=== PATIENT | male | born 1965 | race Two or more races ===

== ENCOUNTER 2018-04-12 23:14 | Emergency (ER) | payer BC ==
[~2018-04-12] VITALS: Ht 170.2 cm; Wt 79.4 kg
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
--- NOTE | 2018-04-13 00:16 | NUR ---
Dr. Otero at bedside for update
[2018-04-13 00:22] VITALS: BP 148/88
--- NOTE | 2018-04-13 00:22 | NUR ---
Patient discharged to home in stable conditon. Written and verbal after care instructions given. Patient verbalizes understanding of instructions.
== END 2018-04-13 00:22 | disposition home or self-care (01) ==
LOC: ER 23:15
DX: F07.81 Postconcussional syndrome (principal); F17.200 Nicotine dependence, unspecified, uncomplicated
CPT/HCPCS: 70450; A4663

== ENCOUNTER 2020-03-22 19:57 | Emergency (ER) | payer BC ==
[~2020-03-22] VITALS: Ht 170.2 cm; Wt 83.9 kg
--- NOTE | 2020-03-22 20:37 | NUR ---
RAPID COVID SPECIMEN TO LAB, PT WENT TO CAR TO AWAIT RESULTS. WE WILL CALL PT AFTER RESULTS AT [phone]
--- NOTE | 2020-03-22 21:34 | NUR ---
Patient discharged to home in stable condition. Written and verbal after care instructions given. Patient verbalizes understanding of instructions. Stressed follow up or return to ER for worsening s/s. Patient ambulated with stable gait.
[2020-03-22 21:36] VITALS: BP 145/97
== END 2020-03-22 21:37 | disposition home or self-care (01) ==
LOC: ER 19:57
DX: U07.1 COVID-19 (principal); R50.9 Fever, unspecified; M79.10 Myalgia, unspecified site; F17.210 Nicotine dependence, cigarettes, uncomplicated; R03.0 Elevated blood-pressure reading, without diagnosis of hypertension; Z83.3 Family history of diabetes mellitus; Z82.49 Family history of ischemic heart disease and other diseases of the circulatory system
CPT/HCPCS: A4663

== ENCOUNTER 2020-04-11 22:06 | Inpatient (IN) | payer BC ==
[~2020-04-11] VITALS: Ht 170.2 cm; Wt 83.9 kg
[2020-04-11] MEDS ORDERED: AZIT250T13 PO (22:41)
[2020-04-11] MEDS ORDERED: DEXA6TAB6 PO (22:41)
--- NOTE | 2020-04-12 | NUR ---
Patient resting with no acute distress sating at 96% on O2 2L via NC.
--- NOTE | 2020-04-12 04:00 | NUR ---
Patient asleep at this time, O2 sat 97% on O2 2L via NC.
--- NOTE | 2020-04-12 07:15 | NUR ---
Handoff to oncoming nurse.
--- NOTE | 2020-04-12 07:16 | NUR ---
Report to BRYSON Sabillon
--- NOTE | 2020-04-12 07:20 | NUR ---
1st contact with patient-AOx4 with shortness of breath with exertion, +decreasing sPo2 levels@room air. Per form raiser BRYSON Valdes, this patient is waiting for rn social services to provide home medical services re: oxygen tank/ supplement while@home. lime kiln worker Santi was notified, pending callback@this time. shipping manager will be notified as well.
--- NOTE | 2020-04-12 12:44 | NUR ---
Hayes marmolejo in [facility] - 04/12/[address] Griffiths accepted patient, pending bed & available nurse@this time.
--- NOTE | 2020-04-12 12:53 | NUR ---
Patient ate lunch tray with good appetite, pending results & disposition.
--- NOTE | 2020-04-12 12:54 | NUR ---
Dr Griffiths called back & talked to our ER doctor (Marco). This patient is now waiting for an inpatient bed & nurse@this time.
--- NOTE | 2020-04-12 14:08 | NUR ---
11:45am: PETER contacted Radha at [facility] [place] [phone] to assist with obtaining home oxygen for the patient. Radha stated that due to current oxygen shortage, she is trying to work on her orders at this time and will call this SW back with an update on availability. PETER provided this SW's contact information to Radha, and PETER will wait for a call back from Radha. PETER will follow-up, as needed. PETER informed ED BRYSON Sabillon about above.
--- NOTE | 2020-04-12 15:13 | NUR ---
Patient is now waiting for an inpatient bed & an available nurse. Patient is resting on gurney with nasal cannula@3liters/min with SPo2=95%-97%. Monitored closely.
--- NOTE | 2020-04-12 15:46 | NUR ---
SW spoke with ED RN Ramandeep, who stated that patient will be getting admitted to the hospital, as inpatient. At this time, no follow-up needed for ordering at-home oxygen for the patient (see previous SS note).
--- NOTE | 2020-04-12 17:27 | NUR ---
Patient is resting comfortably on gurney with eyes closed, nasal cannula@3liters/min with sPo2 levels=95%-97%. Head of gurney elevated@greater than 30 degrees. Comfort and safety measures maintained.
--- NOTE | 2020-04-12 18:04 | NUR ---
Patient is eating dinner with good appetite, monitored closely.
[2020-04-12] MEDS ORDERED: ONDANSETRON 4 MG/2 ML VIAL IV PRN (18:30)
[2020-04-12] MEDS ORDERED: HYDROCODONE/APAP 5-325MG TABLET PO PRN (18:30)
[2020-04-12] MEDS ORDERED: ACETAMINOPHEN 325 MG TABLET PO PRN (18:30)
[2020-04-12] MEDS ORDERED: ENOXAPARIN SODIUM 40 MG/0.4 ML DISP.SYRIN SQ SCH (18:30)
[2020-04-12] MEDS ORDERED: ALBUTEROL SULFATE 8 GM HFA.AER.AD IH PRN (18:30)
--- NOTE | 2020-04-12 19:11 | NUR ---
Patient is still for transfer to inpatient floor, pending available nurse. Hands off report given to RN Jhon accordingly
--- NOTE | 2020-04-12 19:41 | NUR ---
Dr [email or web address]@bedside.
[2020-04-12] MEDS ORDERED: ENOXAPARIN SODIUM 40 MG/0.4 ML DISP.SYRIN SQ ONE (20:37)
[2020-04-12] MEDS ORDERED: AZITHROMYCIN 500MG/ D5W 250ML IVPB **ER PYXIS ONLY IV ONE (20:38)
[2020-04-12] MEDS: AZITHROMYCIN IV 250 MG in IV DEXTROSE 5% 250 ML IV SCH (21:00)
[2020-04-12] MEDS: ASCORBIC ACID 500 MG TABLET PO SCH (21:11)
[2020-04-12] MEDS ORDERED: ASCORBIC ACID 500 MG TABLET ONE (21:13)
--- NOTE | 2020-04-12 21:50 | NUR ---
Pt. admitted to TELE , under care of Dr. WELSH Belongs List completed
--- NOTE | 2020-04-12 22:02 | NUR ---
PATIENT TAKEN BY DE DE LA CRUZ IN A GURNEY TO ROOM 314. PATIENT ON CONTINOUS O2 AT 4L VIA NC.
--- NOTE | 2020-04-12 22:05 | NUR ---
Received patient from ER. Stable condition. On 4L via NC. No pain. No distress. Safety measures in place. Care plan initiated. Will monitor and assess.
[2020-04-13 02:03] VITALS: BP 132/92
[2020-04-13] MEDS: PANTOPRAZOLE SODIUM 40 MG TABLET.DR PO SCH (06:14)
[2020-04-13 06:20] LABS: BASOPHILS % (AUTO) 0.2 % (0.0-2.0); HEMATOCRIT 46.9 % (36.7-47.1); LYMPHOCYTES # (AUTO) 0.9 K/uL (20.0-40.0); LYMPHOCYTES % (AUTO) 6.6 % (20.5-51.5); MEAN CORPUSCULAR HEMOGLOBIN 33.3 uug (23.8-33.4); MEAN CORPUSCULAR HGB CONC 34 g/dL (32.5-36.3); MEAN CORPUSCULAR VOLUME 97.5 fL (73.0-96.2); MONOCYTES # (AUTO) 0.6 K/uL (2.0-10.0); MONOCYTES % (AUTO) 4.6 % (0.0-11.0); NEUTROPHILS # (AUTO) 12.6 K/uL (1.8-8.9); NEUTROPHILS % (AUTO) 88.6 % (38.5-71.5); PLATELET COUNT (AUTO) 202 K/uL (152-348); RED BLOOD CELL COUNT(AUTO) 4.81 MIL/uL (4.06-5.63); WHITE BLOOD COUNT (AUTO) 14.2 K/uL (3.6-10.2)
[2020-04-13 06:47] VITALS: BP 129/87
[2020-04-13 07:59] LABS: BILIRUBIN,TOTAL 0.4 mg/dL (0.2-1.0); MAGNESIUM 2.3 mg/dL (1.8-2.4); PHOSPHOROUS 3.2 mg/dL (2.5-4.9); TOTAL PROTEIN, SERUM 6.9 g/dL (6.4-8.2)
[2020-04-13] MEDS: DEXAMETHASONE SOD PHOSPHATE 4 MG INJ IV SCH (10:03)
[2020-04-13] MEDS: ASCORBIC ACID 500 MG TABLET PO SCH ×2 (10:03→21:23)
[2020-04-13] MEDS: CHOLECALCIFEROL 1,000 UNIT TABLET PO SCH (10:03)
[2020-04-13] MEDS: ZINC SULFATE 220 MG CAPSULE PO SCH (10:03)
[2020-04-13 12:00] VITALS: BP 129/84
--- NOTE | 2020-04-13 14:50 | NUR ---
Covid PCR test ordered and submitted to Lab. Received results of Positive Antigen. PT is aware.
[2020-04-13 16:00] VITALS: BP 109/68
[2020-04-13] MEDS: AZITHROMYCIN IV 250 MG in IV DEXTROSE 5% 250 ML IV SCH (17:41)
[2020-04-13] MEDS ORDERED: DEXTROSE 50% 50 ML DISP.SYRIN IV PRN (18:45)
--- NOTE | 2020-04-13 19:00 | NUR ---
PT seen by Dr. Nick Castaneda with new orders. Carried out medication and orders.
[2020-04-13] MEDS: METFORMIN HCL 500 MG TABLET PO SCH (19:19)
[2020-04-13 21:18] VITALS: BP 108/69
[2020-04-13] MEDS: EZETIMIBE 10 MG TABLET PO SCH (21:23)
[2020-04-13] MEDS: ENOXAPARIN SODIUM 40 MG/0.4 ML DISP.SYRIN SQ SCH (21:24)
[2020-04-13] MEDS: ATORVASTATIN 20 MG TABLET PO SCH (21:24)
[2020-04-13] MEDS: BLOOD SUGAR DIAGNOSTIC 1 EACH STRIP VI SCH (21:52)
[2020-04-13] MEDS: INSULIN REGULAR, HUMAN 300 UNIT/3 ML VIAL SQ PRN ×2 (21:54→21:59)
[2020-04-13] MEDS ORDERED: CEFTRIAXONE 1 G VIAL ONE (22:13)
[2020-04-13] MEDS: CEFTRIAXONE 1 G in IV DEXTROSE 5% 50 ML IV SCH (22:24)
[2020-04-14 01:05] VITALS: BP 105/74
[2020-04-14 05:40] VITALS: BP 106/71
[2020-04-14] MEDS: PANTOPRAZOLE SODIUM 40 MG TABLET.DR PO SCH (06:08)
--- NOTE | 2020-04-14 06:47 | NUR ---
Patient going to be handed off to AM nurse. VSS. Stable condition. Continued plan of care. Safety measures in place. Will endorse to AM nurse.
[2020-04-14] MEDS: BLOOD SUGAR DIAGNOSTIC 1 EACH STRIP VI SCH ×4 (07:35→20:27)
[2020-04-14] MEDS: INSULIN REGULAR, HUMAN 300 UNIT/3 ML VIAL SQ PRN ×4 (07:36→21:07)
[2020-04-14] MEDS: DEXAMETHASONE SOD PHOSPHATE 4 MG INJ IV SCH ×2 (09:00→10:46)
[2020-04-14] MEDS: ASCORBIC ACID 500 MG TABLET PO SCH ×2 (09:37→20:14)
[2020-04-14] MEDS: ZINC SULFATE 220 MG CAPSULE PO SCH (09:37)
[2020-04-14] MEDS: CHOLECALCIFEROL 1,000 UNIT TABLET PO SCH (09:37)
[2020-04-14] MEDS: METFORMIN HCL 500 MG TABLET PO SCH ×2 (09:39→19:01)
--- NOTE | 2020-04-14 10:37 | NUR ---
INFORMATION SENT:FACE SHEET,24HRS,PROGRESS NOTES04/13,PSF,IMAGING,UR04/13 FAX TO:PETRONA SMITH O [phone] FAX SENT BY DAMION
[2020-04-14 11:37] VITALS: BP 112/76
--- NOTE | 2020-04-14 13:36 | NUR ---
Patient is resting in bed. no acute changes noted. morning dose of Decadron was given late as it was not available. BS was 217, 4 units of insulin given. all the needs are met, no s/s of SOB or distress. will cont to monitor .
[2020-04-14 15:07] LABS: HEMATOCRIT 46.7 % (36.7-47.1); HEMOGLOBIN 15.2 g/dL (12.5-16.3); LYMPHOCYTES # (AUTO) 0.6 K/uL (20.0-40.0); LYMPHOCYTES % (AUTO) 4.2 % (20.5-51.5); MEAN CORPUSCULAR HEMOGLOBIN 32.2 uug (23.8-33.4); MEAN CORPUSCULAR HGB CONC 33 g/dL (32.5-36.3); MEAN CORPUSCULAR VOLUME 98.6 fL (73.0-96.2); MONOCYTES # (AUTO) 0.5 K/uL (2.0-10.0); MONOCYTES % (AUTO) 3.4 % (0.0-11.0); NEUTROPHILS # (AUTO) 14.1 K/uL (1.8-8.9); NEUTROPHILS % (AUTO) 92.4 % (38.5-71.5); PLATELET COUNT (AUTO) 188 K/uL (152-348); RED BLOOD CELL COUNT(AUTO) 4.73 MIL/uL (4.06-5.63); WHITE BLOOD COUNT (AUTO) 15.3 K/uL (3.6-10.2)
[2020-04-14 16:00] VITALS: BP 118/73
[2020-04-14 16:15] LABS: CREATININE 1.1 mg/dL (0.6-1.3); MAGNESIUM 2.2 mg/dL (1.8-2.4); PHOSPHOROUS 2.4 mg/dL (2.5-4.9); POTASSIUM 3.9 mmol/L (3.5-5.1)
[2020-04-14] MEDS: AZITHROMYCIN IV 250 MG in IV DEXTROSE 5% 250 ML IV SCH (19:01)
[2020-04-14] MEDS ORDERED: REMDESIVIR (CHARGED) 200 MG in IV NORMAL SALINE 210 ML IV ONE (20:00)
--- NOTE | 2020-04-14 20:05 | NUR ---
Patient is resting in bed. alert oriented x4, no SOB or distress noted. VS wnl. BS was checked and insulin was given per protocol. all needs are met, report was indorsed to lens examiner nurse.
[2020-04-14] MEDS: EZETIMIBE 10 MG TABLET PO SCH (20:14)
[2020-04-14] MEDS: ATORVASTATIN 20 MG TABLET PO SCH (20:14)
[2020-04-14 20:21] VITALS: BP 105/75
[2020-04-14] MEDS: ENOXAPARIN SODIUM 40 MG/0.4 ML DISP.SYRIN SQ SCH (21:08)
[2020-04-14] MEDS: CEFTRIAXONE 1 G in IV DEXTROSE 5% 50 ML IV SCH (22:24)
--- NOTE | 2020-04-15 00:09 | NUR ---
Received pt resting in bed and watching tv. AAO x4. On 4L O2 via NC, no acute distress noted. Denies pain/ discomfort. Due meds given as ordered. Accucheck 394, insulin coverage given as per sliding scale. IV on right hand #22. Safety measures maintained. Call light and personal items within reach. Will continue to monitor.
[2020-04-15 00:16] VITALS: BP 113/73
[2020-04-15 06:01] VITALS: BP 111/74
[2020-04-15] MEDS: PANTOPRAZOLE SODIUM 40 MG TABLET.DR PO SCH (06:30)
[2020-04-15] MEDS: BLOOD SUGAR DIAGNOSTIC 1 EACH STRIP VI SCH ×4 (06:31→20:23)
[2020-04-15 07:26] LABS: BASOPHILS % (AUTO) 0.2 % (0.0-2.0); HEMATOCRIT 44.3 % (36.7-47.1); HEMOGLOBIN 14.9 g/dL (12.5-16.3); LYMPHOCYTES # (AUTO) 1.2 K/uL (20.0-40.0); LYMPHOCYTES % (AUTO) 7.7 % (20.5-51.5); MEAN CORPUSCULAR HEMOGLOBIN 32.7 uug (23.8-33.4); MEAN CORPUSCULAR HGB CONC 34 g/dL (32.5-36.3); MEAN CORPUSCULAR VOLUME 97.2 fL (73.0-96.2); MONOCYTES # (AUTO) 0.8 K/uL (2.0-10.0); MONOCYTES % (AUTO) 5.3 % (0.0-11.0); NEUTROPHILS % (AUTO) 86.8 % (38.5-71.5); PLATELET COUNT (AUTO) 177 K/uL (152-348); RED BLOOD CELL COUNT(AUTO) 4.56 MIL/uL (4.06-5.63)
--- NOTE | 2020-04-15 07:30 | NUR ---
Received patient in bed, Awake alert and oriented. No sign of distress noted. Safety precautions are in place. Will continue to monitor.
[2020-04-15 08:48] LABS: BILIRUBIN,DIRECT 0.1 mg/dL (0.0-0.2); BILIRUBIN,TOTAL 0.3 mg/dL (0.2-1.0); CREATININE 1.1 mg/dL (0.6-1.3); PHOSPHOROUS 3.4 mg/dL (2.5-4.9); POTASSIUM 3.5 mmol/L (3.5-5.1); TOTAL PROTEIN, SERUM 6.4 g/dL (6.4-8.2)
[2020-04-15] MEDS: METFORMIN HCL 500 MG TABLET PO SCH ×2 (10:54→17:02)
[2020-04-15] MEDS: ASCORBIC ACID 500 MG TABLET PO SCH ×2 (10:54→20:18)
[2020-04-15] MEDS: ZINC SULFATE 220 MG CAPSULE PO SCH (10:55)
[2020-04-15] MEDS: CHOLECALCIFEROL 1,000 UNIT TABLET PO SCH (11:00)
[2020-04-15] MEDS: DEXAMETHASONE SOD PHOSPHATE 4 MG INJ IV SCH (11:50)
[2020-04-15 12:00] VITALS: BP 113/74
[2020-04-15] MEDS: INSULIN REGULAR, HUMAN 300 UNIT/3 ML VIAL SQ PRN ×3 (13:06→20:22)
[2020-04-15 16:00] VITALS: BP 92/53
[2020-04-15] MEDS ORDERED: REMDESIVIR (CHARGED) 100 MG in IV NORMAL SALINE 230 ML IV SCH (18:30)
[2020-04-15] MEDS: REMDESIVIR (CHARGED) 100 MG in IV NORMAL SALINE 100 ML IV SCH (20:10)
[2020-04-15] MEDS: EZETIMIBE 10 MG TABLET PO SCH (20:18)
[2020-04-15] MEDS: ATORVASTATIN 20 MG TABLET PO SCH (20:19)
[2020-04-15 20:20] VITALS: BP 116/70
[2020-04-15] MEDS: ENOXAPARIN SODIUM 40 MG/0.4 ML DISP.SYRIN SQ SCH (20:22)
[2020-04-15] MEDS: CEFTRIAXONE 1 G in IV DEXTROSE 5% 50 ML IV SCH (21:14)
--- NOTE | 2020-04-15 22:51 | NUR ---
Received pt resting in bed. AAO x4. No acute distress noted. Denies pain/ discomfort. Due meds given as ordered. Accucheck 294, insulin coverage given as per sliding scale. Safety measures maintained. Call light and personal items within reach. Will continue to monitor.
[2020-04-16 04:54] VITALS: BP 118/76
[2020-04-16] MEDS: PANTOPRAZOLE SODIUM 40 MG TABLET.DR PO SCH (06:20)
[2020-04-16] MEDS: BLOOD SUGAR DIAGNOSTIC 1 EACH STRIP VI SCH ×4 (06:31→21:24)
[2020-04-16 07:14] LABS: ALANINE AMINOTRANSFERASE 62 U/L (16-63); ALKALINE PHOSPHATASE 78 U/L (50-136); ASPARTATE AMINOTRANSFERASE 14 U/L (15-37); BILIRUBIN,DIRECT < 0.1 mg/dL (0.0-0.2); BILIRUBIN,TOTAL 0.3 mg/dL (0.2-1.0); CARBON DIOXIDE 26 mmol/L (21-32); CHLORIDE 103 mmol/L (98-107); GLUCOSE 231 mg/dL (74-106); POTASSIUM 3.3 mmol/L (3.5-5.1); TOTAL PROTEIN, SERUM 6.1 g/dL (6.4-8.2); UREA NITROGEN, BLOOD 20 mg/dL (7-18)
[2020-04-16 07:20] LABS: BASOPHILS % (AUTO) 0.1 % (0.0-2.0); EOSINOPHILS % (AUTO) 0.1 % (0.0-7.0); HEMOGLOBIN 15.1 g/dL (12.5-16.3); LYMPHOCYTES # (AUTO) 1.2 K/uL (20.0-40.0); LYMPHOCYTES % (AUTO) 8.6 % (20.5-51.5); MEAN CORPUSCULAR HEMOGLOBIN 33.4 uug (23.8-33.4); MEAN CORPUSCULAR HGB CONC 34 g/dL (32.5-36.3); MEAN CORPUSCULAR VOLUME 97.1 fL (73.0-96.2); MONOCYTES % (AUTO) 7.3 % (0.0-11.0); NEUTROPHILS # (AUTO) 11.9 K/uL (1.8-8.9); NEUTROPHILS % (AUTO) 83.9 % (38.5-71.5); PLATELET COUNT (AUTO) 166 K/uL (152-348); RED BLOOD CELL COUNT(AUTO) 4.53 MIL/uL (4.06-5.63); WHITE BLOOD COUNT (AUTO) 14.2 K/uL (3.6-10.2)
[2020-04-16] MEDS: INSULIN REGULAR, HUMAN 300 UNIT/3 ML VIAL SQ PRN ×4 (08:48→21:28)
[2020-04-16] MEDS: ASCORBIC ACID 500 MG TABLET PO SCH ×2 (08:49→20:57)
[2020-04-16] MEDS: ZINC SULFATE 220 MG CAPSULE PO SCH (08:49)
[2020-04-16] MEDS: CHOLECALCIFEROL 1,000 UNIT TABLET PO SCH (08:49)
[2020-04-16] MEDS: DEXAMETHASONE SOD PHOSPHATE 4 MG INJ IV SCH (08:50)
[2020-04-16] MEDS: METFORMIN HCL 500 MG TABLET PO SCH ×2 (08:52→17:00)
[2020-04-16] MEDS ORDERED: POTASSIUM CHLORIDE 20 MEQ TAB.PRT.SR PO ONE (10:15)
[2020-04-16 12:13] VITALS: BP 117/85
[2020-04-16 16:00] VITALS: BP 108/70
--- NOTE | 2020-04-16 17:48 | NUR ---
Patient is alert and oriented x4. Respirations are even and unlabored. No respiratory distress noted. Patient is receiving oxygen via NC at 3 L/min, previously at 4L/minute but titrated down and patient is tolerating well with oxygen saturation at 97%. Patient states at resting he does not feel SOB, but when he ambulates to the bathroom and returns to bed then he feels SOB. Patient is medication adherent, tolerating well with no adverse reaction. Patient received insulin per sliding scale for hyperglycemia, tolerated well. Patient provided with education about diabetes management and proper diet, able to verbalize understanding. Bed is in low and locked position with bilateral side rails raised. Call light and personal belongings placed near patient. Patient's needs met during this shift.
[2020-04-16 20:12] VITALS: BP 109/72
[2020-04-16] MEDS: ATORVASTATIN 20 MG TABLET PO SCH (20:56)
[2020-04-16] MEDS: REMDESIVIR (CHARGED) 100 MG in IV NORMAL SALINE 100 ML IV SCH (20:56)
[2020-04-16] MEDS: EZETIMIBE 10 MG TABLET PO SCH (20:57)
[2020-04-16] MEDS: ENOXAPARIN SODIUM 40 MG/0.4 ML DISP.SYRIN SQ SCH (20:57)
[2020-04-16 22:30] VITALS: BP 111/69
--- NOTE | 2020-04-16 22:45 | NUR ---
Convalescent plasma transfusion initiated after Vs taken and witnessed by another RN. Will monitor.
[2020-04-16 23:15] VITALS: BP 105/70
--- NOTE | 2020-04-16 23:15 | NUR ---
Transfusion completed. No s/s of adverse reaction noted. Patient tolerated procedure well.
[2020-04-17] MEDS: CEFTRIAXONE 1 G in IV DEXTROSE 5% 50 ML IV SCH ×2 (00:10→21:22)
[2020-04-17 05:53] VITALS: BP 107/67
[2020-04-17] MEDS: PANTOPRAZOLE SODIUM 40 MG TABLET.DR PO SCH (06:12)
[2020-04-17] MEDS: BLOOD SUGAR DIAGNOSTIC 1 EACH STRIP VI SCH ×4 (06:17→22:00)
--- NOTE | 2020-04-17 06:42 | NUR ---
Shift End Report: VS stable. No complaint presented all night. Patient very cooperative with care. Covid convalescent plasma transfused as ordered without s/s of adverse reaction. All needs attended and met. Continue current plan of care.
--- NOTE | 2020-04-17 07:30 | NUR ---
Received patient in bed, Awake, alert and oriented time 4 No signs of distress noted. Patient is saturating well on 3L of oxygen. Safety precautions in place. Will continue to monitor.
[2020-04-17] MEDS: INSULIN REGULAR, HUMAN 300 UNIT/3 ML VIAL SQ PRN ×3 (10:07→22:11)
[2020-04-17] MEDS: ZINC SULFATE 220 MG CAPSULE PO SCH (10:08)
[2020-04-17] MEDS: ASCORBIC ACID 500 MG TABLET PO SCH ×2 (10:09→21:22)
[2020-04-17] MEDS: CHOLECALCIFEROL 1,000 UNIT TABLET PO SCH (10:09)
[2020-04-17] MEDS: DEXAMETHASONE SOD PHOSPHATE 4 MG INJ IV SCH (10:09)
[2020-04-17] MEDS: METFORMIN HCL 500 MG TABLET PO SCH ×2 (10:09→18:18)
[2020-04-17 11:12] LABS: EOSINOPHILS # (AUTO) 0.1 K/uL (0.0-0.7); EOSINOPHILS % (AUTO) 0.5 % (0.0-7.0); HEMATOCRIT 43.7 % (36.7-47.1); HEMOGLOBIN 14.8 g/dL (12.5-16.3); LYMPHOCYTES # (AUTO) 1.4 K/uL (20.0-40.0); LYMPHOCYTES % (AUTO) 10.6 % (20.5-51.5); MEAN CORPUSCULAR HEMOGLOBIN 32.9 uug (23.8-33.4); MEAN CORPUSCULAR HGB CONC 34 g/dL (32.5-36.3); MEAN CORPUSCULAR VOLUME 97.1 fL (73.0-96.2); MONOCYTES # (AUTO) 0.9 K/uL (2.0-10.0); MONOCYTES % (AUTO) 6.4 % (0.0-11.0); NEUTROPHILS # (AUTO) 11.2 K/uL (1.8-8.9); NEUTROPHILS % (AUTO) 82.5 % (38.5-71.5); PLATELET COUNT (AUTO) 158 K/uL (152-348); WHITE BLOOD COUNT (AUTO) 13.6 K/uL (3.6-10.2)
[2020-04-17 11:37] LABS: BILIRUBIN,DIRECT 0.1 mg/dL (0.0-0.2); BILIRUBIN,TOTAL 0.3 mg/dL (0.2-1.0); CREATININE 1.2 mg/dL (0.6-1.3); MAGNESIUM 1.9 mg/dL (1.8-2.4); POTASSIUM 3.5 mmol/L (3.5-5.1); TOTAL PROTEIN, SERUM 6.1 g/dL (6.4-8.2)
[2020-04-17 11:58] LABS: PHOSPHOROUS 3.6 mg/dL (2.5-4.9)
[2020-04-17 12:00] VITALS: BP 115/81
[2020-04-17 16:00] VITALS: BP 125/79
[2020-04-17] MEDS: REMDESIVIR (CHARGED) 100 MG in IV NORMAL SALINE 100 ML IV SCH (20:00)
[2020-04-17 20:12] VITALS: BP_SYST 102; BP_SYST 124; BP_DIAS 42; BP_DIAS 78
[2020-04-17] MEDS: ATORVASTATIN 20 MG TABLET PO SCH (21:22)
[2020-04-17] MEDS: ENOXAPARIN SODIUM 40 MG/0.4 ML DISP.SYRIN SQ SCH (21:23)
[2020-04-17] MEDS: EZETIMIBE 10 MG TABLET PO SCH (22:12)
--- NOTE | 2020-04-17 22:12 | NUR ---
waited for zetia to be brought up by utility mechanic supervisor. just made aware that zetia is unavailable. not able to find medication in pyxis drawers in medication room.
[2020-04-18 05:40] VITALS: BP 127/83
[2020-04-18] MEDS: PANTOPRAZOLE SODIUM 40 MG TABLET.DR PO SCH (06:02)
[2020-04-18] MEDS: BLOOD SUGAR DIAGNOSTIC 1 EACH STRIP VI SCH ×5 (06:30→20:43)
--- NOTE | 2020-04-18 07:30 | NUR ---
Received patient in bed, Awake, alert and oriented time 4. No signs of distress noted. Patient is saturating well on 3L of oxygen. Safety precautions in place. Will continue to monitor.
[2020-04-18 08:09] LABS: BILIRUBIN,DIRECT 0.1 mg/dL (0.0-0.2); BILIRUBIN,TOTAL 0.2 mg/dL (0.2-1.0); CREATININE 1.3 mg/dL (0.6-1.3); POTASSIUM 3.5 mmol/L (3.5-5.1); TOTAL PROTEIN, SERUM 6.2 g/dL (6.4-8.2)
[2020-04-18 08:40] LABS: BASOPHILS % (AUTO) 0.1 % (0.0-2.0); EOSINOPHILS % (AUTO) 0.1 % (0.0-7.0); HEMOGLOBIN 15.2 g/dL (12.5-16.3); LYMPHOCYTES % (AUTO) 7.2 % (20.5-51.5); MEAN CORPUSCULAR HEMOGLOBIN 33.1 uug (23.8-33.4); MEAN CORPUSCULAR HGB CONC 34 g/dL (32.5-36.3); MEAN CORPUSCULAR VOLUME 97.6 fL (73.0-96.2); MONOCYTES # (AUTO) 0.6 K/uL (2.0-10.0); MONOCYTES % (AUTO) 4.2 % (0.0-11.0); NEUTROPHILS # (AUTO) 11.8 K/uL (1.8-8.9); NEUTROPHILS % (AUTO) 88.4 % (38.5-71.5); PLATELET COUNT (AUTO) 171 K/uL (152-348); RED BLOOD CELL COUNT(AUTO) 4.61 MIL/uL (4.06-5.63); WHITE BLOOD COUNT (AUTO) 13.4 K/uL (3.6-10.2)
[2020-04-18] MEDS: ZINC SULFATE 220 MG CAPSULE PO SCH (09:19)
[2020-04-18] MEDS: ASCORBIC ACID 500 MG TABLET PO SCH ×2 (09:19→20:29)
[2020-04-18] MEDS: DEXAMETHASONE SOD PHOSPHATE 4 MG INJ IV SCH (09:19)
[2020-04-18] MEDS: INSULIN REGULAR, HUMAN 300 UNIT/3 ML VIAL SQ PRN ×3 (09:20→17:18)
[2020-04-18] MEDS: METFORMIN HCL 500 MG TABLET PO SCH ×2 (09:47→17:07)
[2020-04-18] MEDS: CHOLECALCIFEROL 1,000 UNIT TABLET PO SCH (10:11)
[2020-04-18 12:16] LABS: ABG HCO3 24.4 mmol/L; ABG PCO2 35.8 mmHg (35.0-45.0); ABG PH 7.452 (7.350-7.450); ABG PO2 60.4 mmHg (75.0-100.0); ABG SITE RIGHT BRACHIAL; ABG TOTAL HEMOGLOBIN 16.6 G/dL (13.5-18.0); COHb 1.4 % (0.5-1.5); MetHb 0.3 % (0.0-1.5); O2Hb 90.9 % (94.0-97.0); VENT MODE ROOM AIR
[2020-04-18 16:00] VITALS: BP 119/81
--- NOTE | 2020-04-18 18:57 | NUR ---
Patient is resting in bed. No sign of distress noted. Gave all medications as ordered. Patient is now on room air and saturating at 95%. Safety precautions are in place with call lights and belongings within reach. Will endorse to oncoming nurse.
[2020-04-18 20:00] VITALS: BP 121/83
[2020-04-18] MEDS: REMDESIVIR (CHARGED) 100 MG in IV NORMAL SALINE 100 ML IV SCH (20:28)
[2020-04-18] MEDS: ATORVASTATIN 20 MG TABLET PO SCH (20:29)
[2020-04-18] MEDS: EZETIMIBE 10 MG TABLET PO SCH (20:29)
[2020-04-18] MEDS: ENOXAPARIN SODIUM 40 MG/0.4 ML DISP.SYRIN SQ SCH (20:31)
[2020-04-19 04:33] VITALS: BP 119/80
[2020-04-19] MEDS: PANTOPRAZOLE SODIUM 40 MG TABLET.DR PO SCH (06:13)
[2020-04-19] MEDS: BLOOD SUGAR DIAGNOSTIC 1 EACH STRIP VI SCH ×3 (06:48→16:33)
--- NOTE | 2020-04-19 07:30 | NUR ---
Received PT in bed, awake AO X 4. Sitting up in bed and watching TV with safety measures. No complain stated at the time. No acute distress or SOB noted. PT is cooperative and pleasant. Makes needs known to staff. PT on room air with O2 saturation of 96%. Nurse fulfilled PT's current needs. Safety measures provided, call light within reach, bed low and lock. Will continue to monitor. PLAN: Discharge once oxygen tank is available.
[2020-04-19] MEDS: ZINC SULFATE 220 MG CAPSULE PO SCH (08:42)
[2020-04-19] MEDS: DEXAMETHASONE SOD PHOSPHATE 4 MG INJ IV SCH (08:43)
[2020-04-19] MEDS: CHOLECALCIFEROL 1,000 UNIT TABLET PO SCH (08:43)
[2020-04-19] MEDS: ASCORBIC ACID 500 MG TABLET PO SCH (08:43)
[2020-04-19] MEDS: METFORMIN HCL 500 MG TABLET PO SCH (08:43)
[2020-04-19 12:00] VITALS: BP 120/89
--- NOTE | 2020-04-19 12:00 | NUR ---
Proceeding with discharge plans. Oxygen tank arrangements have been made with rn field case manager. will filler picker PT. PT is aware of plan and agrees. PT has no acute distress or SOB. PT in bed with safety measures. Will continue to monitor.
[2020-04-19] MEDS: INSULIN REGULAR, HUMAN 300 UNIT/3 ML VIAL SQ PRN ×2 (12:31→16:50)
[2020-04-19 16:16] VITALS: BP 111/80
--- NOTE | 2020-04-19 17:20 | NUR ---
Oxygen tank arrived at hospital and received by PT's . PT ready for discharge. IV removed. No bleeding, swelling or bruises noted at site. All belongs packed and with PT. Belonging list signed and home medications sent with PT> No acute distress or SOB noted. No complain of pain. Vitals WNL. Blood sugar checked and received coverage. Nurse brought PT down to car via wheelchair. drove away with PT.
== END 2020-04-19 17:20 | disposition home health service (06) | DRG 177 ==
LOC: ER 22:08 → TRANSITION 04-12 13:00 → TELE3 04-12 21:48 → MEDSURG3 04-14 23:18
PROVIDERS: ADMIT Internal Medicine; ATTEND Internal Medicine
PROC: XW033E5 Introduction of Remdesivir Anti-infective into Peripheral Vein, Percutaneous Approach, New Technology Group 5 (ICD-10-PCS; principal; 2020-04-14)
PROC: XW13325 Transfusion of Convalescent Plasma (Nonautologous) into Peripheral Vein, Percutaneous Approach, New Technology Group 5 (ICD-10-PCS; 2020-04-16)
DX: U07.1 COVID-19 (principal); J96.01 Acute respiratory failure with hypoxia; J12.82 Pneumonia due to coronavirus disease 2019; J15.9 Unspecified bacterial pneumonia; E44.0 Moderate protein-calorie malnutrition; E66.9 Obesity, unspecified; E88.09 Other disorders of plasma-protein metabolism, not elsewhere classified; E11.9 Type 2 diabetes mellitus without complications; E78.5 Hyperlipidemia, unspecified; Z87.891 Personal history of nicotine dependence; Z83.3 Family history of diabetes mellitus; Z82.49 Family history of ischemic heart disease and other diseases of the circulatory system; D75.89 Other specified diseases of blood and blood-forming organs; Z68.29 Body mass index [BMI] 29.0-29.9, adult
CPT/HCPCS: 36415; 36600; 70030-TC; 71045; 83615; 83735; 84100; 85025; 85610; 86140; 86850; 86900; 86901; A4663; G0378; J0456; J0696; J1100; J1650; J1815; J3490; J3535; J7050; J7060; P9016-BL; P9017-BL

== ENCOUNTER 2020-04-22 18:22 | Inpatient (IN) | payer BC ==
[~2020-04-22] VITALS: Ht 170.2 cm; Wt 83.9 kg
[~2020-04-22 18:22] MED LIST: DEXA6TAB6 PO
[2020-04-22 19:42] LABS: BILIRUBIN,DIRECT 0.1 mg/dL (0.0-0.2); BILIRUBIN,TOTAL 0.4 mg/dL (0.2-1.0); TOTAL PROTEIN, SERUM 6.6 g/dL (6.4-8.2)
[2020-04-22 19:43] LABS: BASOPHILS % (AUTO) 0.1 % (0.0-2.0); EOSINOPHILS % (AUTO) 0.1 % (0.0-7.0); HEMOGLOBIN 15.9 g/dL (12.5-16.3); LYMPHOCYTES % (AUTO) 6.2 % (20.5-51.5); MEAN CORPUSCULAR HEMOGLOBIN 32.3 uug (23.8-33.4); MEAN CORPUSCULAR HGB CONC 33 g/dL (32.5-36.3); MEAN CORPUSCULAR VOLUME 97.3 fL (73.0-96.2); MONOCYTES # (AUTO) 0.7 K/uL (2.0-10.0); MONOCYTES % (AUTO) 4.6 % (0.0-11.0); NEUTROPHILS # (AUTO) 14.5 K/uL (1.8-8.9); PLATELET COUNT (AUTO) 184 K/uL (152-348); RED BLOOD CELL COUNT(AUTO) 4.94 MIL/uL (4.06-5.63); WHITE BLOOD COUNT (AUTO) 16.3 K/uL (3.6-10.2)
[2020-04-22] MEDS ORDERED: ALBUTEROL SULFATE 2.5 MG/3 ML NEBU NEB ONE (20:30)
[2020-04-22] MEDS ORDERED: IPRATROPIUM BROMIDE 0.5 MG/2.5 ML NEBU NEB ONE (20:30)
[2020-04-22 20:58] LABS: POTASSIUM 4.1 mmol/L (3.5-5.1)
[2020-04-22] MEDS: VANCOMYCIN 1G/D5W 200 ML PIGGYBACK IV ONE ×2 (21:00→23:00)
[2020-04-22 21:11] LABS: BILIRUBIN,TOTAL 0.4 mg/dL (0.2-1.0); TOTAL PROTEIN, SERUM 6.6 g/dL (6.4-8.2)
[2020-04-22] MEDS ORDERED: AZITHROMYCIN IV 500 MG in IV DEXTROSE 5% 250 ML IV ONE (21:15)
[2020-04-22] MEDS ORDERED: PIPERACILLIN SODIUM/TAZOBACTAM 3.375 G in IV DEXTROSE 5% 50 ML IV ONE (21:15)
[2020-04-22] MEDS ORDERED: AZITHROMYCIN 500MG/ D5W 250ML IVPB **ER PYXIS ONLY IV ONE (21:26)
[2020-04-22] MEDS ORDERED: PIPERACILLIN/TAZOBACTAM/D5W 50 ML IV ONE (21:26)
[2020-04-22] MEDS ORDERED: ASPI81TA31 PO (21:42)
[2020-04-22] MEDS ORDERED: METF-440 PO (21:42)
[2020-04-22] MEDS ORDERED: ATOR20TA PO (21:42)
[2020-04-22] MEDS ORDERED: ALBUTEROL SULFATE 2.5 MG/ 0.5 ML NEBU ONE (23:03)
[2020-04-22] MEDS ORDERED: IPRATROPIUM BROMIDE 0.5 MG/2.5 ML NEBU ONE (23:03)
[2020-04-22] MEDS ORDERED: HYDROCODONE/APAP 5-325MG TABLET PO PRN (23:45)
[2020-04-22] MEDS ORDERED: IV NS 1000 ML 1,000 ML IV PRN (23:45)
[2020-04-22] MEDS ORDERED: MORPHINE SULFATE 2 MG/1 ML DISP.SYRIN IV PRN (23:45)
[2020-04-22] MEDS ORDERED: ALBUTEROL SULFATE 8 GM HFA.AER.AD IH PRN (23:45)
[2020-04-22] MEDS ORDERED: ACETAMINOPHEN 325 MG TABLET PO PRN (23:45)
[2020-04-22] MEDS ORDERED: MAGNESIUM HYDROXIDE 30 ML LIQUID UDC PO PRN (23:45)
[2020-04-22] MEDS ORDERED: DEXTROSE 50% 50 ML DISP.SYRIN IV PRN (23:45)
[2020-04-22] MEDS: ENOXAPARIN SODIUM 40 MG/0.4 ML DISP.SYRIN SQ SCH (23:45)
[2020-04-22] MEDS ORDERED: ONDANSETRON 4 MG/2 ML VIAL IV PRN (23:45)
[2020-04-23 00:15] VITALS: BP 114/80
[2020-04-23] MEDS: DEXAMETHASONE SOD PHOSPHATE 4 MG INJ IV SCH ×2 (01:17→08:00)
[2020-04-23] MEDS ORDERED: PIPERACILLIN/TAZOBACTAM/D5W 50 ML IV ONE (02:02)
[2020-04-23] MEDS ORDERED: PIPERACILLIN SODIUM/TAZOBACTAM 3.375 G in IV DEXTROSE 5% 50 ML IV ONE (03:30)
[2020-04-23 04:00] VITALS: BP 114/78
[2020-04-23 06:12] LABS: BASOPHILS % (AUTO) 0.1 % (0.0-2.0); HEMOGLOBIN 14.3 g/dL (12.5-16.3); LYMPHOCYTES # (AUTO) 1.1 K/uL (20.0-40.0); LYMPHOCYTES % (AUTO) 6.4 % (20.5-51.5); MEAN CORPUSCULAR HEMOGLOBIN 32.7 uug (23.8-33.4); MEAN CORPUSCULAR HGB CONC 33 g/dL (32.5-36.3); MEAN CORPUSCULAR VOLUME 98.4 fL (73.0-96.2); MONOCYTES # (AUTO) 0.7 K/uL (2.0-10.0); MONOCYTES % (AUTO) 4.1 % (0.0-11.0); NEUTROPHILS # (AUTO) 15.4 K/uL (1.8-8.9); NEUTROPHILS % (AUTO) 89.4 % (38.5-71.5); PLATELET COUNT (AUTO) 149 K/uL (152-348); RED BLOOD CELL COUNT(AUTO) 4.37 MIL/uL (4.06-5.63); WHITE BLOOD COUNT (AUTO) 17.2 K/uL (3.6-10.2)
[2020-04-23] MEDS: BLOOD SUGAR DIAGNOSTIC 1 EACH STRIP VI SCH ×4 (06:29→21:46)
[2020-04-23 06:32] LABS: BILIRUBIN,TOTAL 0.7 mg/dL (0.2-1.0); MAGNESIUM 2.2 mg/dL (1.8-2.4); PHOSPHOROUS 4.1 mg/dL (2.5-4.9); POTASSIUM 4.2 mmol/L (3.5-5.1)
[2020-04-23] MEDS: PIPERACILLIN SODIUM/TAZOBACTAM 3.375 G in IV DEXTROSE 5% 50 ML IV SCH ×5 (07:00→23:26)
[2020-04-23 07:25] LABS: *BILIRUBIN,URIN NEGATIVE (NEGATIVE); *BLOOD, URINE 1+ (NEGATIVE); *COLOR,URINE YELLOW (YELLOW); *KETONES,URINE NEGATIVE (NEGATIVE); *UROBILINOGEN,URINE 0.2 E.U./dl (NORMAL); LEUKOCYTE ESTERASE ,URINE NEGATIVE (NEGATIVE); NITRITE, URINE NEGATIVE (NEGATIVE); PH,URINE 5.5 (5.0-8.0)
[2020-04-23 07:49] LABS: UGLUCOSE 2+ (NEGATIVE)
[2020-04-23 07:58] LABS: *CLARITY,URINE HAZY (CLEAR)
[2020-04-23 08:00] LABS: BACTERIA,URINE NONE SEEN /HPF (NONE SEEN); CALCIUM OXALATE CRYSTALS,UR MODERATE /HPF (NONE SEEN); RBC,URINE 0-3 /HPF (0-3); SQUAMOUS EPITHELIAL CELL,UR NONE SEEN /HPF (NONE SEEN); WBC,URINE 0-3 /HPF (0-3)
[2020-04-23] MEDS: METFORMIN HCL 500 MG TABLET PO SCH ×2 (08:00→17:05)
[2020-04-23] MEDS: NICOTINE 14 MG/24HR PATCH TD SCH (08:00)
[2020-04-23] MEDS: ASPIRIN 81 MG TAB.CHEW PO SCH (08:03)
[2020-04-23] MEDS: VANCOMYCIN IV 1,250 MG in IV DEXTROSE 5% 250 ML IV SCH ×2 (08:04→16:08)
[2020-04-23] MEDS: INSULIN REGULAR, HUMAN 300 UNIT/3 ML VIAL SQ PRN ×4 (08:08→21:53)
[2020-04-23 11:31] VITALS: BP 118/79
[2020-04-23 16:20] VITALS: BP 110/73
[2020-04-23 20:05] VITALS: BP 114/79
[2020-04-23] MEDS ORDERED: ATORVASTATIN 20 MG TABLET PO SCH (21:00)
[2020-04-23] MEDS: ENOXAPARIN SODIUM 40 MG/0.4 ML DISP.SYRIN SQ SCH (21:40)
[2020-04-23] MEDS ORDERED: AZITHROMYCIN IV 500 MG in IV DEXTROSE 5% 250 ML IV SCH (22:00)
[2020-04-24 00:13] VITALS: BP 112/74
[2020-04-24] MEDS: VANCOMYCIN IV 1,250 MG in IV DEXTROSE 5% 250 ML IV SCH ×2 (00:16→08:00)
[2020-04-24 04:00] VITALS: BP 107/70
[2020-04-24] MEDS: PIPERACILLIN SODIUM/TAZOBACTAM 3.375 G in IV DEXTROSE 5% 50 ML IV SCH ×2 (05:06→12:03)
[2020-04-24] MEDS: BLOOD SUGAR DIAGNOSTIC 1 EACH STRIP VI SCH ×3 (06:08→16:51)
[2020-04-24 06:39] LABS: BASOPHILS % (AUTO) 0.2 % (0.0-2.0); HEMATOCRIT 41.4 % (36.7-47.1); HEMOGLOBIN 13.7 g/dL (12.5-16.3); LYMPHOCYTES # (AUTO) 1.4 K/uL (20.0-40.0); LYMPHOCYTES % (AUTO) 7.7 % (20.5-51.5); MEAN CORPUSCULAR HEMOGLOBIN 32.7 uug (23.8-33.4); MEAN CORPUSCULAR HGB CONC 33 g/dL (32.5-36.3); MONOCYTES # (AUTO) 1.1 K/uL (2.0-10.0); NEUTROPHILS # (AUTO) 15.4 K/uL (1.8-8.9); NEUTROPHILS % (AUTO) 86.1 % (38.5-71.5); PLATELET COUNT (AUTO) 156 K/uL (152-348); RED BLOOD CELL COUNT(AUTO) 4.18 MIL/uL (4.06-5.63); WHITE BLOOD COUNT (AUTO) 17.9 K/uL (3.6-10.2)
[2020-04-24] MEDS ORDERED: IV NORMAL SALINE 250 ML IV ONE (07:02)
[2020-04-24] MEDS ORDERED: IOHEXOL 350 100 ML INFUS..BTL ONE (07:02)
[2020-04-24] MEDS ORDERED: SWABABLE VALVE TRANSFER SET EA MC ONE (07:02)
[2020-04-24 07:14] LABS: POTASSIUM 3.9 mmol/L (3.5-5.1)
[2020-04-24] MEDS: NICOTINE 14 MG/24HR PATCH TD SCH (09:12)
[2020-04-24] MEDS: ASPIRIN 81 MG TAB.CHEW PO SCH (09:12)
[2020-04-24] MEDS: METFORMIN HCL 500 MG TABLET PO SCH ×2 (09:12→18:00)
[2020-04-24] MEDS: DEXAMETHASONE SOD PHOSPHATE 4 MG INJ IV SCH (09:12)
[2020-04-24] MEDS: INSULIN REGULAR, HUMAN 300 UNIT/3 ML VIAL SQ PRN ×2 (09:23→18:18)
[2020-04-24 11:16] VITALS: BP 105/67
[2020-04-24] MEDS ORDERED: VANCOMYCIN IV 1,250 MG in IV DEXTROSE 5% 250 ML IV SCH (16:00)
[2020-04-24] MEDS ORDERED: NICO-671 TD (16:07)
[2020-04-24] MEDS ORDERED: METF-440 PO (16:07)
[2020-04-24] MEDS ORDERED: ALBU8HFA4 IH (16:07)
[2020-04-24] MEDS ORDERED: INSU100V28 SQ (16:07)
[2020-04-24] MEDS ORDERED: Blood Sugar Diagnostic VI (16:07)
[2020-04-24] MEDS ORDERED: AMOX-430 PO (16:08)
[2020-04-24 16:28] VITALS: BP 106/67
== END 2020-04-24 18:45 | disposition home health service (06) | DRG 177 ==
LOC: ER 18:26 → TELE3 23:40
PROVIDERS: ADMIT Nurse Practitioner Acute Care; ATTEND Nurse Practitioner Acute Care
PROC: 05HY33Z Insertion of Infusion Device into Upper Vein, Percutaneous Approach (ICD-10-PCS; principal; 2020-04-24)
DX: U07.1 COVID-19 (principal); J18.9 Pneumonia, unspecified organism; J12.82 Pneumonia due to coronavirus disease 2019; J96.01 Acute respiratory failure with hypoxia; E44.1 Mild protein-calorie malnutrition; J47.0 Bronchiectasis with acute lower respiratory infection; E11.65 Type 2 diabetes mellitus with hyperglycemia; E78.5 Hyperlipidemia, unspecified; F17.210 Nicotine dependence, cigarettes, uncomplicated; K76.0 Fatty (change of) liver, not elsewhere classified; Z86.16 Personal history of COVID-19; R79.89 Other specified abnormal findings of blood chemistry; Z82.49 Family history of ischemic heart disease and other diseases of the circulatory system; Z83.3 Family history of diabetes mellitus
CPT/HCPCS: 36415; 70030-TC; 71045; 71275; 83605; 83735; 84100; 85025; 85730; 86140; 87040; 87400; A4663; G0378; J0456; J1100; J1650; J1815; J2543; J3370; J3535; J3590; J7030; J7050; J7060; Q9967; U0003